=== PATIENT | male | born 1975 | race Caucasian/White ===

== ENCOUNTER 2023-11-27 19:14 | Emergency (ER) | payer MEDICAID, OTHER ==
[~2023-11-27] VITALS: Ht 167.6 cm; Wt 104.3 kg
[2023-11-27] MEDS ORDERED: MORPHINE SULFATE INJ 4 MG/ML DISP.SYRIN ONE (20:26)
[2023-11-27] MEDS ORDERED: ONDANSETRON HCL/PF 4 MG/2 ML VIAL ONE (20:26)
[2023-11-27] MEDS: IV NS 0.9% 1,000 ML BAG IV ONE (20:40)
[2023-11-27] MEDS: ONDANSETRON HCL/PF 4 MG/2 ML VIAL IVP ONE (20:40)
[2023-11-27 20:41] LABS: APPEARANCE,URINE CLEAR (CLEAR); BILIRUBIN,URINE NEGATIVE (NEGATIVE); BLOOD, URINE TRACE-INTA Ery/uL (NEGATIVE); COLOR,URINE YELLOW (YELLOW); KETONES,URINE NEGATIVE (NEGATIVE); LEUKOCYTE ESTERASE ,URINE NEGATIVE (NEGATIVE); NITRITE, URINE NEGATIVE (NEGATIVE); PROTEIN,URINE NEGATIVE (NEGATIVE); UGLUCOSE NEGATIVE (NEGATIVE); UROBILINOGEN,URINE 0.2 EU/dL (0.2)
[2023-11-27] MEDS: MORPHINE SULFATE INJ 2 MG/ML DISP.SYRIN IV ONE (20:42)
[2023-11-27 21:04] LABS: BASOPHILS % (AUTO) 0.3 % (0.0-2.0); EOSINOPHILS # (AUTO) 0.1 K/uL (0.0-0.7); EOSINOPHILS % (AUTO) 0.7 % (0.0-6.0); HEMATOCRIT 40 % (39-51); HEMOGLOBIN 13.8 g/dL (13.5-17.5); LYMPHOCYTES # (AUTO) 4.1 K/uL (0.8-4.8); LYMPHOCYTES % (AUTO) 39.8 % (20.0-44.0); MEAN CORPUSCULAR HEMOGLOBIN 31 PG (26.0-33.0); MEAN CORPUSCULAR HGB CONC 34 g/dl (31.0-36.0); MEAN CORPUSCULAR VOLUME 91 fL (80-96); MONOCYTES # (AUTO) 0.6 K/uL (0.1-1.30); MONOCYTES % (AUTO) 5.9 % (2.0-12.0); NEUTROPHILS # (AUTO) 5.5 K/uL (1.8-8.9); NEUTROPHILS % (AUTO) 53.3 % (43.0-81.0); PLATELET COUNT (AUTO) 315 K/uL (150-450); RED BLOOD CELL COUNT(AUTO) 4.46 MIL/uL (4.5-6.0); WHITE BLOOD COUNT (AUTO) 10.3 K/uL (4.3-11.0)
[2023-11-27] MEDS ORDERED: OMEP20CA15 PO (21:13)
[2023-11-27 21:15] LABS: ADD URINE CULTURE NO; BACTERIA,URINE None seen /HPF (None Seen); SQUAMOUS EPITHELIAL CELL,UR None Seen /HPF (None Seen); WBC,URINE 0-2 /HPF (0-3)
[2023-11-27 21:16] LABS: CALCIUM, SERUM 9.4 mg/dL (8.5-10.1); CARBON DIOXIDE 28 mmol/L (21-32); CHLORIDE 103 mmol/L (98-107); CREATININE 1.1 mg/dL (0.6-1.3); GLUCOSE 92 mg/dL (74-106); POTASSIUM 3.9 mmol/L (3.5-5.1); SODIUM SERUM 139 mmol/L (136-145); UREA NITROGEN, BLOOD 16 mg/dL (7-18)
[2023-11-27 21:27] LABS: ALANINE AMINOTRANSFERASE 37 U/L (12-78); ALKALINE PHOSPHATASE 76 U/L (46-116); ASPARTATE AMINOTRANSFERASE 17 U/L (15-37); BILIRUBIN,DIRECT 0.1 mg/dL (0.0-0.2); BILIRUBIN,TOTAL 0.4 mg/dL (0.2-1.0); LIPASE 55 U/L (16-77); TOTAL PROTEIN, SERUM 7.3 g/dL (6.4-8.2)
[2023-11-27] MEDS ORDERED: MAG HYDROX/AL HYDROX/SIMETH 30 ML UDC ONE (21:37)
[2023-11-27] MEDS: MAG HYDROX/AL HYDROX/SIMETH 30 ML UDC PO ONE (21:37)
[2023-11-27] MEDS: FAMOTIDINE/PF INJ 20 MG/2 ML VIAL IV ONE (23:50)
[2023-11-27] MEDS ORDERED: FAMOTIDINE/PF INJ 20 MG/2 ML VIAL IV ONE (23:50)
[2023-11-27] MEDS ORDERED: ACETAMINOPHEN ES 500 MG TABLET ONE (23:50)
[2023-11-27] MEDS: ACETAMINOPHEN ES 500 MG TABLET PO ONE (23:50)
[2023-11-28 00:23] VITALS: BP 119/67; TEMP 98; O2SAT 100
== END 2023-11-28 00:23 | disposition home or self-care (01) ==
LOC: ER 19:20
DX: R10.13 Epigastric pain (principal); R11.0 Nausea; I10 Essential (primary) hypertension; E11.9 Type 2 diabetes mellitus without complications
CPT/HCPCS: 99285; 74176; 96374; 71045; 96375; 96361; 93005; 85025; 80048; 83690; 80076; 81001; 36415; 84484; J2270; J3490; J2405; J7030

== ENCOUNTER 2024-02-07 19:37 | Emergency (ER) | payer OTHER ==
[~2024-02-07] VITALS: Ht 165.1 cm; Wt 104.3 kg
[~2024-02-07 19:37] MED LIST: OMEP20CA15 PO
[2024-02-07 20:05] VITALS: TEMP 98.8
[2024-02-07] MEDS ORDERED: LISINOPRIL (10MG) 10 MG TABLET ONE (20:32)
[2024-02-07] MEDS: LISINOPRIL (10MG) 10 MG TABLET PO ONE (20:33)
[2024-02-07] MEDS ORDERED: AZITHROMYCIN 250 MG TABLET ONE (22:24)
[2024-02-07] MEDS ORDERED: ACETAMINOPHEN ES 500 MG TABLET ONE (22:24)
[2024-02-07] MEDS: ACETAMINOPHEN ES 500 MG TABLET PO ONE (22:25)
[2024-02-07] MEDS: AZITHROMYCIN 250 MG TABLET PO ONE (22:25)
[2024-02-07] MEDS ORDERED: IBUP-1955 PO (22:29)
[2024-02-07] MEDS ORDERED: ACET-2605 PO (22:29)
[2024-02-07] MEDS ORDERED: AZIT250T13 PO (22:29)
[2024-02-07] MEDS ORDERED: IBUPROFEN 600 MG TABLET ONE (22:34)
[2024-02-07] MEDS: IBUPROFEN 600 MG TABLET PO ONE (22:36)
[2024-02-07 22:47] VITALS: BP 184/98; O2SAT 98
== END 2024-02-07 22:48 | disposition home or self-care (01) ==
LOC: ER 19:39
DX: J40 Bronchitis, not specified as acute or chronic (principal); I10 Essential (primary) hypertension; E78.5 Hyperlipidemia, unspecified; Z20.822 Contact with and (suspected) exposure to COVID-19
CPT/HCPCS: 71045-TC; 86403-TC; 87070-TC

== ENCOUNTER 2025-02-15 19:34 | Emergency (ER) | payer OTHER ==
[~2025-02-15] VITALS: Ht 165.1 cm; Wt 96.2 kg
[~2025-02-15 19:34] MED LIST changes: +ACET-2605 PO; +AZIT250T13 PO; +IBUP-1955 PO
[2025-02-15 20:44] VITALS: BP 157/92; TEMP 97.8; O2SAT 98
[2025-02-15] MEDS ORDERED: IBUP-1490 PO (21:03)
== END 2025-02-15 21:19 | disposition home or self-care (01) ==
LOC: ER 19:36
DX: M25.562 Pain in left knee (principal); I10 Essential (primary) hypertension; Z98.890 Other specified postprocedural states; Z79.899 Other long term (current) drug therapy